=== PATIENT | female | born 1980 | race Caucasian/White ===

== ENCOUNTER → 2016-12-06 | Outpatient (CLI) | payer BC | LOC: LAB 10:30 | PROVIDERS: ATTEND Obstetrics & Gynecology | DX: Z36 Encounter for antenatal screening of mother (principal) | CPT/HCPCS: 36415 ==

== ENCOUNTER → 2017-01-16 | Outpatient (CLI) | payer BC | LOC: LAB 10:14 | PROVIDERS: ATTEND Obstetrics & Gynecology | DX: Z36.89 Encounter for other specified antenatal screening (principal) | CPT/HCPCS: 36415; 82105 ==

== ENCOUNTER → 2017-03-28 | Outpatient (CLI) | payer BC | LOC: OD 10:32 | PROVIDERS: ATTEND Nurse Practitioner Family | DX: Z36.89 Encounter for other specified antenatal screening (principal) | CPT/HCPCS: 36415; 82950 ==

== ENCOUNTER 2017-04-29 11:16 | Emergency (ER) | payer BC ==
[2017-04-29 11:30] VITALS: BP 128/73
--- NOTE | 2017-04-29 11:55 | ER Document Report ---
HPI - HPI Onset/Duration: Sudden Quality of pain: No pain Pain Level: Denies Context: 37-year-old female G1 30 weeks wants to know if she has influenza. She did receive the flu shot. 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 Yesterday she started with a dry cough some chills and body aches. Her temperature is 99. No nausea vomiting or diarrhea. The baby is moving actively today. No dysuria frequency or urgency. No urinary tract infection complications with this . 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 IN LAST 30 DAYS: No - HEENT HEENT: Normal ENT Exam, Normocephalic. negative: Pharyngeal Erythema, Tympanic Membrane Red - RESPIRATORY O2 Sat by Pulse Oximetry: 98 Course - Re-evaluation Re-evalutation: 04/29/17 13:06 Influenza test is negative 04/29/17 13:[address] Lennon who recommends that I do put her on Tamiflu. - Vital Signs Vital signs: Temp Pulse Resp BP Pulse Ox 99.0 F 99 12 128/73 H 98 04/29/17 11:29 04/29/17 11:29 04/29/17 11:29 04/29/17 11:29 04/29/17 11:29 Discharge - Discharge Clinical Impression: 30 weeks gestation of , Cough, Low grade fever, Myalgia Condition: Good Disposition: HOME, SELF-CARE Instructions: Acetaminophen, Fever ([facility]), Upper Respiratory Illness ([facility]) Additional Instructions: plenty of fluids cool mist humidifier, wash it daily rest tamiflu twice a day for 5 days Prescriptions: Oseltamivir Phosphate [Tamiflu 75 mg Capsule] 75 mg PO BID #10 capsule Referrals: ADELA HOGUE NP [Primary Care Provider] - Follow up as needed CHAPIS LENNON MD [ACTIVE STAFF] - Follow up as needed
[2017-04-29 12:39] LABS: A TYPE INFLUENZA AG NEGATIVE (NEGATIVE); B INFLUENZA AG NEGATIVE (NEGATIVE)
== END 2017-04-29 13:26 | disposition home or self-care (01) ==
LOC: ER 11:16
DX: O26.893 Other specified pregnancy related conditions, third trimester (principal); R05 Cough; R50.9 Fever, unspecified; O99.89 Other specified diseases and conditions complicating pregnancy, childbirth and the puerperium; M79.1 Myalgia; Z3A.30 30 weeks gestation of pregnancy
CPT/HCPCS: 87804; 99283

== ENCOUNTER → 2017-05-21 | Outpatient (CLI) | payer BC ==
[2017-05-21 16:23] LABS: PLATELET COUNT 273 10^3/uL (150-450)
== END ==
LOC: LAB 15:55
PROVIDERS: ATTEND Obstetrics & Gynecology
DX: Z36.9 Encounter for antenatal screening, unspecified (principal); Z11.3 Encounter for screening for infections with a predominantly sexual mode of transmission; Z11.8 Encounter for screening for other infectious and parasitic diseases
CPT/HCPCS: 36415; 85049; 86592; 86701; 86702

== ENCOUNTER 2017-06-10 02:29 | Inpatient (IN) | payer BC ==
[2017-06-10] MEDS ORDERED: PENICILLIN G POTASSIUM 5,000,000 UNIT in DEXTROSE 5%-WATER 100 ML IV ONE (02:52)
[2017-06-10] MEDS ORDERED: RINGERS SOLUTION,LACTATED 1,000 ML IV PRN (02:52)
[2017-06-10] MEDS ORDERED: LIDOCAINE 1% INJ-PF (10 MG/ML) 30 ML SDV ONE (02:55)
[2017-06-10] MEDS ORDERED: PENICILLIN G-K 5 MILLION UNIT VIAL ONE (02:55)
[2017-06-10] MEDS ORDERED: OXYTOCIN/NORMAL SALINE 20 UNIT/1,000 ML RTUINJ ONE (02:55)
[2017-06-10] MEDS ORDERED: MISOPROSTOL 0.2 MG TABLET ONE (02:55)
[2017-06-10] MEDS ORDERED: PENICILLIN G-K 5 MILLION UNIT VIAL IV PRN (02:56)
[2017-06-10 03:26] LABS: ABSOLUTE BASOPHILS # (AUTO) 0.1 10^3/uL (0.0-0.2); ABSOLUTE EOSINOPHILS # (AUTO) 0.1 10^3/uL (0.0-0.6); ABSOLUTE MONOCYTES (AUTO) 0.7 10^3/uL (0.1-1.4); ABSOLUTE NEUT (AUTO) 13.2 10^3/uL (1.7-8.2); BASOPHILS % (AUTO) 0.4 % (0-2); EOSINOPHILS % (AUTO) 0.6 % (0-6); HEMATOCRIT 37.3 % (36.0-47.0); HEMOGLOBIN 12.7 g/dL (12.0-15.5); LYMPHOCYTES % (AUTO) 12.1 % (13-45); MEAN CORPUSCULAR HGB CONC 34.2 g/dL (32.0-36.0); MEAN CORPUSCULAR VOLUME 88 fl (80-97); MONOCYTES % (AUTO) 4.5 % (3-13); PLATELET COUNT 228 10^3/uL (150-450); RED BLOOD COUNT 4.24 10^6/uL (3.72-5.28); RED CELL DISTRIBUTION WIDTH 13.8 % (11.5-14.0); SEGMENTED NEUTROPHILS % (AUTO) 82.4 % (42-78); TOTAL CELLS COUNTED % (AUTO) 100 %; WHITE BLOOD COUNT 16.1 10^3/uL (4.0-10.5)
[2017-06-10] MEDS ORDERED: PHENYLEPHRINE HCL INJ/PF 10 MG/1 ML SDV ONE (03:35)
[2017-06-10] MEDS ORDERED: FENTANYL CITRATE INJ/PF 100 MCG/2 ML AMPUL ONE (03:35)
[2017-06-10] MEDS ORDERED: EPHEDRINE SULFATE INJ 50 MG/1 ML AMPULE ONE (03:35)
[2017-06-10] MEDS ORDERED: BUPIVACAINE HCL 0.25 % INJ/PF (2.5 MG/1 ML) 30 ML VIAL ONE (03:36)
[2017-06-10] MEDS ORDERED: FENTANYL/BUPIVACAINE/NS/PF 200 MCG/100 ML RTUINJ EPI ONE (03:36)
[2017-06-10] MEDS ORDERED: ZOLPIDEM TARTRATE 5 MG TABLET PO PRN (05:39)
[2017-06-10] MEDS ORDERED: DIPH/PERTUSS(ACELL)/TETANUS VAC/PF 0.5 ML SYR (>=10YO) IM PRN (05:39)
[2017-06-10] MEDS ORDERED: PROMETHAZINE HCL 25 MG SUPP.RECT PR PRN (05:39)
[2017-06-10] MEDS ORDERED: DIPHENHYDRAMINE HCL 25 MG CAPSULE PO PRN (05:39)
[2017-06-10] MEDS ORDERED: PROMETHAZINE HCL INJ 25 MG/1 ML VIAL IV PRN (05:39)
[2017-06-10] MEDS ORDERED: OXYTOCIN/NORMAL SALINE 20 UNIT/1,000 ML RTUINJ IV PRN (05:39)
[2017-06-10] MEDS ORDERED: PROMETHAZINE HCL 25 MG TABLET PO PRN (05:39)
[2017-06-10] MEDS ORDERED: BENZOCAINE/MENTHOL AEROSOL SPRAY 56 ML TOP PRN (05:39)
[2017-06-10] MEDS ORDERED: MEASLES,MUMPS&RUBELLA VACC/PF 0.5 ML VIAL SUBCUT PRN (05:39)
[2017-06-10] MEDS ORDERED: DIBUCAINE 1% OINTMENT 28 GM TP PRN (05:39)
[2017-06-10] MEDS ORDERED: MAGNESIUM HYDROXIDE SUSP 30 ML UDCUP PO PRN (05:39)
[2017-06-10] MEDS ORDERED: GLYCERIN/WITCH HAZEL LEAF 1 EACH MED..PAD TP PRN (05:39)
[2017-06-10] MEDS ORDERED: ACETAMINOPHEN WITH CODEINE #3 TABLET PO PRN (05:39)
[2017-06-10] MEDS ORDERED: ACETAMINOPHEN 650 MG SUPP.RECT PR PRN (05:39)
[2017-06-10] MEDS ORDERED: PSEUDOEPHEDRINE HCL 30 MG TABLET PO PRN (05:39)
[2017-06-10] MEDS ORDERED: NA PHOS,M-B/NA PHOS,DI-BA (ADULT) 133 ML ENEMA PR PRN (05:39)
[2017-06-10] MEDS ORDERED: PENICILLIN G POTASSIUM 2,500,000 UNIT in DEXTROSE 5%-WATER 50 ML IV SCH (07:00)
--- NOTE | 2017-06-10 07:19 | Delivery Summary ---
Del Sum A-C Datetime Report Generated by CPN: 06/10/2017 07:18 DELIVERY PERSONNEL DELIVERY PERSONNEL: [id number] Delivery Doctor:: Loki Benitez MD Labor and Delivery Nurse:: Marcela Casillas RNC Nursery Nurse:: Silvana Toledo RN Vice President Investor Relations/EXTRUSION LINE OPERATOR: Izzy Vargas, ST MATERNAL INFORMATION Delivery Anesthesia: Epidural Medications After Delivery: Pitocin Bolus-Please Comment; Pitocin Drip 20 Units/1000ml NSS Meds After Delivery Comment: NS with Pitocin 20 units/liter IVF bolus Estimated Blood Loss (ml): 150 Maternal Complications: None Provider Comments: meconium light nuchal cord x 1 LABOR SUMMARY EDC: 06/16/2017 00:00 No. Babies in Womb: 1 Attempted: No Labor Anesthesia: Epidural LABOR INFORMATION Reason for Induction: Not Applicable Onset of Labor: 06/10/2017 00:30 Complete Dilatation: 06/10/2017 04:08 Oxytocin: N/A Group B Beta Strep: positive Antibiotics # of Doses: 1 Antibiotics Time of Last Dose: 0305 Name of Antibiotic Given: PCN Steroids Given: None Reason Steroids Not Administered: Not Applicable MEMBRANES Membranes Rupture Method: Spontaneous Rupture of Membranes: 06/10/2017 03:36 Length of Rupture (hr): 1.78 Amniotic Fluid Color: Light Meconium Amniotic Fluid Amount: Moderate Amniotic Fluid Odor: Normal STAGES OF LABOR Stage 1 hr: 3 Stage 1 min: 38 Stage 2 hr: 1 Stage 2 min: 15 Stage 3 hr: 0 Stage 3 min: 5 Total Time in Labor hr: 4 Total Time in Labor min: 58 VAGINAL DELIVERY Episiotomy: None Laceration #1: Perineal Laceration Extension #1: First Degree Laceration Repair: Yes Laceration Repair Note: repaired with 2-0 vicryl running Sponge Count Correct: Yes Sharps Count Correct: Yes CSECTION DELIVERY Primary Indication: N/A Secondary Indication: N/A CSection Incidence: N/A CSection Incision: N/A BABY A INFORMATION Infant Delivery Date/Time: 06/10/2017 05:23 Method of Delivery: Vaginal Born in Route : No : N/A Forceps: N/A Vacuum Extraction: N/A Shoulder Dystocia : No PRESENTATION/POSITION BABY A Presentation: Cephalic Cephalic Presentation: Vertex Vertex Position: Left Occipital Anterior Breech Presentation: N/A PLACENTA INFORMATION BABY A Placenta Delivery Time : 06/10/2017 05:28 Placenta Method of Delivery: Spontaneous Placenta Status: Delivered SCORES BABY A Heart Rate 1 min: >100 bpm Resp Effort 1 min: Good Cry Reflex Irritability 1 min: Cough or Sneeze or Pulls Away Muscle Tone 1 min: Active Motion Color 1 min: Body Murphy, Extremities Blue Resuscitation Effort 1 min: Tactile Stimulation SCORE 1 MIN: 9 Heart Rate 5 min: >100 bpm Resp Effort 5 min: Good Cry Reflex Irritability 5 min: Cough or Sneeze or Pulls Away Muscle Tone 5 min: Active Motion Color 5 min: Body Murphy, Extremities Blue Resuscitation Effort 5 min: Tactile Stimulation SCORE 5 MIN: 9 INFANT INFORMATION BABY A Gestational Age at Delivery: 39.1 Gestational Status: Full Term- 39- 40.6 Weeks Outcome : Liveborn Condition : Stable Infant Sex: Female IDENTIFICATION BABY A Verification Date/Time: 06/10/2017 06:06 ID Band Number: [id number] Mother's Name Verified: Yes Infant RN Verifying : rn xiangsmann Additional Verifying Personnel: rn bellavance WEIGHT/LENGTH BABY A Birthweight (gm): 2730 Weight (lb): 6 Infant Weight (oz): 0 Length (in): 19.00 Infant Length (cm): 48.26 CORD INFORMATION BABY A No. Cord Vessels: 3 Nuchal Cord : Around Neck x1, Loose Cord Blood Taken: Yes-For Storage (Mom's Blood type +) Suction: Mouth; Nose ASSESSMENT BABY A Infant Complications: Multiple Variable Decels; Meconium Infant Complications- Other: nuchal cord x 1 Physical Findings at Delivery: Within Normal Limits Skin to Skin: Yes Infant Care By: Estela Toledo RN Transferred To: Nursery BABY B INFORMATION : N/A SIGNATURES Signature: with User ID: [email or web address]
--- NOTE | 2017-06-10 08:17 | Admission Physical ---
Datetime Report Generated by CPN: 06/10/2017 08:17 CURRENT ADMISSION Hx Assessment: The History has been Reviewed and is Current Chief Complaint: Uterine Contractions Indication for Induction: Not Applicable Indication for Induction: Term, Intrauterine Admit Plan: Initiate Labor Protocol ALLERGIES Medication Allergies: Yes Medication Allergies: ciprofloxacin/CT (06/10/2017) Medication Allergies: ciprofloxacin (04/29/2017) Latex: No Latex Allergies Food Allergies: None Environmental Allergies: None OBSTETRICAL HISTORY EDC: 06/16/2017 00:00 : 1 Para: 0 Term: 0 : 0 SAB: 0 IAB: 0 Livin Gestational Diabetes: No Rh Sensitization: No Incompetent Cervix: No KYLEIGH: No Infertility: No ART Treatment: No Uterine Anomaly: No IUGR: No Hx Previous C/S: No Macrosomia: No Hx Loss/Stillborn: No PIH: No Hx : No Placenta Previa/Abruption: No Depression/PP Depression: No PTL/PROM: No Post Hemorrhage: No Current Procedures: NST Obstetrical History Comments: G1- current SEE RECORDS Alcohol: No Marijuana : No Cocaine: No Other Illicit Drugs: No Cigarettes: Never Smoker. [id number] MEDICAL HISTORY Diabetes: No Blood Transfusion: No Pulmonary Disease (Asthma, TB): Yes Pulmonary Disease (Asthma, TB): Yes Breast Disease: No Hypertension: No [employer] Surgery: No Heart Disease: No Hosp/Surgery: No Autoimmune Disorder: No Anesthetic Complications: No Kidney Disease: No Abnormal Pap Smear: Yes Neuro/Epilepsy: No Psychiatric Disorders: No Other Medical Diseases: No Hepatitis/Liver Disease: No Significant Family History: No Varicosities/Phlebitis: No Trauma/Violence : No Thyroid Dysfunction: No Medical History Comments: abnormal pap with colpo and leep 2011, PMDD, asthma INFECTIOUS HISTORY Gonorrhea: No Genital Herpes: No Chlamydia: No Tuberculosis: No Syphilis: No Hepatitis: No HIV/AIDS Exposure: No Rash or Viral Illness: No HPV: Yes Infectious History Comments: Hx of HPV 2016 PHYSICAL EXAM General: Normal HEENT: Normal Neurologic: Normal Thyroid: Normal Heart: Normal Lungs: Normal Breast: Deferred Back: Normal Abdomen: Normal Genitourinary Exam: Normal Extremities: Normal DTRs: Normal Pelvic Type: Adequate Vital Signs: Reviewed MEMBRANES Pooling: Negative Membranes: Ruptured Amniotic Fluid Color: Meconium, Light FETUS A EGA: 39.1 Monitoring: External US Decelerations: None PLANS FOR LABOR AND DELIVERY Labor and Delivery: None Pain Management: Epidural Feeding Preference: Breast Benefit of Breast Feed Discussed: Yes Circumcision: Yes INFORMED CONSENT Signature: with User ID: [email or web address]
[2017-06-10] MEDS ORDERED: (PENDING PHARMACY ID) (Sertraline Hcl [Zoloft] 1 TAB) PO SCH (10:00)
[2017-06-10] MEDS ORDERED: (PENDING PHARMACY ID) (Prenatal Vit Calc,Iron,Folic [Prenatal Vitamins] 1 TAB) PO SCH (10:00)
[2017-06-10] MEDS: DOCUSATE SODIUM 100 MG CAPSULE PO SCH ×2 (11:12→17:55)
[2017-06-10] MEDS: FAMOTIDINE 20 MG TABLET PO SCH ×2 (11:13→21:02)
[2017-06-10] MEDS: PRENATAL VITAMIN W DHA CAPSULE PO SCH (11:14)
[2017-06-10] MEDS: FERROUS SULFATE 325 MG TABLET PO SCH ×2 (11:14→17:55)
[2017-06-10] MEDS: SENNOSIDES/DOCUSATE 8.6-50 MG 1 EACH TABLET PO SCH (11:15)
[2017-06-10] MEDS: IBUPROFEN 800 MG TABLET PO SCH ×3 (11:15→17:55)
[2017-06-10] MEDS ORDERED: SERTRALINE HCL 50 MG TABLET PO ONE (11:30)
[2017-06-11] MEDS: IBUPROFEN 800 MG TABLET PO SCH ×3 (01:08→18:08)
[2017-06-11 07:58] LABS: HEMATOCRIT 33.1 % (36.0-47.0); HEMOGLOBIN 11.2 g/dL (12.0-15.5); MEAN CORPUSCULAR HEMOGLOBIN 30.2 pg (27.0-33.4); MEAN CORPUSCULAR HGB CONC 33.9 g/dL (32.0-36.0); MEAN CORPUSCULAR VOLUME 89 fl (80-97); PLATELET COUNT 175 10^3/uL (150-450); RED BLOOD COUNT 3.72 10^6/uL (3.72-5.28); RED CELL DISTRIBUTION WIDTH 13.7 % (11.5-14.0); WHITE BLOOD COUNT 12.5 10^3/uL (4.0-10.5)
--- NOTE | 2017-06-11 09:09 | PDOC PROGRESS REPORT ---
Subjective-OB Progress Note for:: 06/11/17 Subjective: Day #1 Doing well, lochia is stable, pain well controlled, voiding without difficulty. Physical Exam (OB) Vital Signs: Temp Pulse Resp BP Pulse Ox 97.8 F 67 18 118/68 100 06/11/17 07:26 06/11/17 07:26 06/11/17 07:26 06/11/17 07:26 06/11/17 07:26 Intake & Output 06/10/17 06/11/17 06/12/17 06:59 06:59 06:59 Weight 82.1 kg - Lochia Lochia Amount: Scant < 10 ml Lochia Color: Rubra/Red - Abdomen Description: Soft, Round Hernia Present: No Fundal Description: Firm, Midline Fundal Height: u/u - u/2 Objective-Diagnostic Laboratory: 06/11/17 07:01 06/11/17 07:01 WBC 12.5 H RBC 3.72 Hgb 11.2 L Hct 33.1 L MCV 89 MCH 30.2 MCHC 33.9 RDW 13.7 Plt Count 175 Assessment and Plan(PN) - Assessment and Plan (1) Vaginal delivery Is this a current diagnosis for this admission?: Yes Plan: routine pp care - Time Spent with Patient Time with patient: Less than 15 minutes Critical Time spent with patient: Less than 15 minutes Medications reviewed and adjusted accordingly: Yes - Disposition Anticipated Discharge: Home Within: within 24 hours
[2017-06-11] MEDS: SERTRALINE HCL 50 MG TABLET PO SCH (10:41)
[2017-06-11] MEDS: FERROUS SULFATE 325 MG TABLET PO SCH ×2 (10:41→18:08)
[2017-06-11] MEDS: SENNOSIDES/DOCUSATE 8.6-50 MG 1 EACH TABLET PO SCH (10:41)
[2017-06-11] MEDS: PRENATAL VITAMIN W DHA CAPSULE PO SCH (10:41)
[2017-06-11] MEDS: DOCUSATE SODIUM 100 MG CAPSULE PO SCH ×2 (10:41→18:08)
[2017-06-11] MEDS: FAMOTIDINE 20 MG TABLET PO SCH ×2 (10:42→21:33)
[2017-06-12] MEDS: IBUPROFEN 800 MG TABLET PO SCH ×2 (02:15→09:48)
--- NOTE | 2017-06-12 08:35 | PDOC PROGRESS REPORT ---
Subjective-OB Progress Note for:: 06/12/17 Physical Exam (OB) Vital Signs: Temp Pulse Resp BP Pulse Ox 98.3 F 86 18 119/61 97 06/11/17 19:56 06/11/17 19:56 06/11/17 07:26 06/11/17 19:56 06/11/17 19:56 - Dressing Removed: No - Bilateral Tubal Ligation Dressing Removed: No - Lochia Lochia Amount: Scant < 10 ml Lochia Color: Rubra/Red - Abdomen Description: Soft, Round Hernia Present: No Bowel Sounds: Normoactive Flatus Presence: Present Fundal Description: Firm, Midline Fundal Height: u/u - u/2 - Respiratory Breath sounds: Clear - Extremities Calf: Normal Objective-Diagnostic Laboratory: 06/11/17 07:01 Assessment and Plan(PN) - Time Spent with Patient Medications reviewed and adjusted accordingly: Yes - Disposition Anticipated Discharge: Home
--- NOTE | 2017-06-12 08:42 | PDOC DISCHARGE SUMMARY ---
Final Diagnosis Discharge Date: 06/12/17 - Final Diagnosis (1) Vaginal delivery Is this a current diagnosis for this admission?: Yes Discharge Data - Discharge Medication Prescriptions: Acetaminophen with Codeine [Tylenol #3 Tablet] 1 each PO Q4HP PRN #14 tablet PRN Reason: Ibuprofen [Motrin 800 mg Tablet] 800 mg PO Q8A #60 tablet Home Medications: Vit Calc,Iron,Folic [ Vitamins] 1 tab PO DAILY 06/10/17 Sertraline HCl [Zoloft] 1 tab PO DAILY 06/10/17 Acetaminophen with Codeine [Tylenol #3 Tablet] 1 each PO Q4HP PRN #14 tablet Ibuprofen [Motrin 800 mg Tablet] 800 mg PO Q8A #60 tablet 06/12/17 Reason(s) for Admission: Onset of Labor Procedures: None Intrapartum Procedure(s): Spontaneous Vaginal Delivery Complication(s): Laceration-Perineal Laceration-Degree: 1st - Diagnosis Test Laboratory: Temp Pulse Resp BP Pulse Ox 98.3 F 86 18 119/61 97 06/11/17 19:56 06/11/17 19:56 06/11/17 07:26 06/11/17 19:56 06/11/17 19:56 06/10/17 06/11/17 03:11 07:01 RBC 4.24 3.72 Hgb 12.7 11.2 L Hct 37.3 33.1 L - Discharge information/Instructions Discharge Activity: Balance Activity w/Rest, Energy Conservation, No Lifting/ Push/Pulling, Pelvic Rest, Walk Frequently Discharge Diet: As Tolerated Disposition: HOME, SELF-CARE Follow [facility]: [facility] in: 6
[2017-06-12 09:03] VITALS: BP 114/54
[2017-06-12] MEDS: PRENATAL VITAMIN W DHA CAPSULE PO SCH (09:48)
[2017-06-12] MEDS: FERROUS SULFATE 325 MG TABLET PO SCH (09:48)
[2017-06-12] MEDS: SENNOSIDES/DOCUSATE 8.6-50 MG 1 EACH TABLET PO SCH (09:48)
[2017-06-12] MEDS: DOCUSATE SODIUM 100 MG CAPSULE PO SCH (09:49)
[2017-06-12] MEDS: SERTRALINE HCL 50 MG TABLET PO SCH (09:49)
== END 2017-06-12 11:53 | disposition home or self-care (01) | DRG 775 ==
LOC: LC 02:29 → LR 02:58 → 2N 08:16
PROVIDERS: ADMIT Obstetrics & Gynecology Gynecology; ATTEND Obstetrics & Gynecology Gynecology
PROC: 10E0XZZ Delivery of Products of Conception, External Approach (ICD-10-PCS; principal; 2017-06-10)
PROC: 0HQ9XZZ Repair Perineum Skin, External Approach (ICD-10-PCS; 2017-06-10)
PROC: 4A1HXCZ Monitoring of Products of Conception, Cardiac Rate, External Approach (ICD-10-PCS; 2017-06-10)
DX: O99.824 Streptococcus B carrier state complicating childbirth (principal); O69.81X0 Labor and delivery complicated by cord around neck, without compression, not applicable or unspecified; O70.0 First degree perineal laceration during delivery; O99.513 Diseases of the respiratory system complicating pregnancy, third trimester; J45.909 Unspecified asthma, uncomplicated; O77.0 Labor and delivery complicated by meconium in amniotic fluid; Z88.3 Allergy status to other anti-infective agents; Z3A.39 39 weeks gestation of pregnancy; Z37.0 Single live birth
CPT/HCPCS: 36415; 85025; 85027; 86592; 86850; 86900; 86901; 88307; J2370; J2540; J2590; J3010; J3490